=== PATIENT | female | born 1955 | race Caucasian/White ===

== ENCOUNTER 2018-09-26 13:54 | Emergency (ER) | payer BC ==
--- NOTE | 2018-09-26 14:45 | ED Physician Documentation ---
History of Present Illness - Stated complaint Stated Complaint: R LEG PX/SWELLING - Chief complaint Chief Complaint: Trauma Ext - History obtained from History obtained from: Patient - History of Present Illness Timing: Last night - Additonal information Additional information: 63 y/o female diabetic with a history of hypertension has developed a swelling and pain in the right medial calf last night. She denies any recent confinment but does have a history of sedentary existence.She has recently been started on Cardizem and she knows that the side effect of this can be leg swelling. She is concerned about this as well. Review of Systems Constitutional: denies: Fever, Chills, Myalgias Eyes: denies: Decreased vision Ears: denies: Ear pain, Drainage/discharge Nose: denies: Rhinorrhea / runny nose, Congestion Throat: denies: Oral lesions / sores Cardiac: denies: Chest pain / pressure, Palpitations Respiratory: denies: Dyspnea, Cough GI: denies: Abdominal Pain, Nausea, Vomiting : denies: Dysuria, Frequency Skin: denies: Rash Musculoskeletal: reports: Extremity pain, Extremity swelling, Pain with weight bearing. 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 HEENT: Tonsil/Adenoidectomy - Present Medications Home Medications: Ambulatory Orders Medication Instructions Recorded Confirmed Aspirin Chewable [St Xavi 81 mg PO DAILY 11/02/13 09/26/18 Aspirin] Cholecalciferol (Vitamin D3) 1,000 unit DAILY 02/20/16 09/26/18 [Vitamin D3] Acetaminophen [Tylenol] 650 mg PO Q4HR PRN #0 tablet 02/23/16 09/26/18 Biotin 1,000 mcg ORAL DAILY 09/26/18 09/26/18 Carvedilol [Coreg] 25 mg ORAL BID 09/26/18 09/26/18 Chondroitin Sulfate A Sodium 600 mg ORAL DAILY 09/26/18 09/26/18 [Chondroitin Sulfate] Cyanocobalamin (Vitamin B-12) 1 cap ORAL DAILY 09/26/18 09/26/18 [Vitamin B-12] Glucosamine Sulfate [Irma] 750 mg ORAL BID 09/26/18 09/26/18 Lisinopril 40 mg PO DAILY 09/26/18 09/26/18 - Allergies Allergies/Adverse Reactions: Allergies Allergy/AdvReac Type Severity Reaction Status Date / Time amlodipine AdvReac Edema Verified 09/26/18 14:59 ezetimibe [From Zetia] AdvReac Unknown Verified 09/26/18 14:59 prazosin AdvReac Unknown Verified 09/26/18 14:59 Fvzawse-Cja-Gjx Reductase AdvReac Unknown Verified 09/26/18 13:59 Inhibitor - Social History Does the pt smoke?: No Smoking Status: Never smoker Does the pt drink ETOH?: Yes Does the pt have substance abuse?: No PD ED PE NORMAL - Vitals Vital signs reviewed: Yes (hypertensive) - General General: Alert and oriented X 3, No acute distress, Well developed/nourished - HEENT HEENT: Atraumatic, PERRL, EOMI - Respiratory Respiratory: No respiratory distress - Derm Derm: Normal color, Warm and dry, No rash - Extremities Extremities: No deformity, Other (There is swelling and mild tenderness to the medial aspect of the right calf. There is no palpable cord. The distal n/v is intact. 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, No motor deficit, No sensory deficit, Normal speech Eye Opening: Spontaneous Motor: Obeys Commands Verbal: Oriented GCS Score: 15 - Psych Psych: Normal mood, Normal affect Results - Vitals Vitals: Vital Signs - 24 hr 09/26/18 13:58 Temperature 37.1 C Heart Rate 82 Respiratory 17 Rate Blood Pressure 194/91 H O2 Saturation 98 Oxygen O2 Source Room air - Rads (name of study) duplex Radiology: Prelim report reviewed (no evidence of DVT, calf soft tissue edema), EMP read indepedently, See rad report PD MEDICAL DECISION MAKING - ED course Complexity details: reviewed results, re-evaluated patient, considered differential, d/w patient ED course: 63-year-old female with some asymmetric swelling in her right calf does not have DVT on duplex exam. She does have some mild swelling but this does not look like the typical swelling seen with Cardizem. I explained this to the patient and she will continue on the Cardizem and follow-up with her primary care doctor on 02 October as previously planned. Her pain in her calf does go to the insertion of the gastrocnemius. Departure - Departure Disposition: 01 Home, Self Care Clinical Impression: Gastrocnemius muscle strain Qualifiers: Encounter type: initial encounter Laterality: right Qualified Code(s): S86.111A - Strain of other muscle(s) and tendon(s) of posterior muscle group at lower leg level, right leg, initial encounter Condition: Stable Instructions: ED Strain Muscle Ext Follow-Up: Tisha Busch MD [Primary Care Provider] -
--- NOTE | 2018-09-26 15:54 | Ultrasound Report ---
Reason: calf swelling/pain Procedure Date: 09/26/2018 Accession Number: [id number] / [id number] Procedure: US - Duplex Ext Veins Right CPT Code: FULL RESULT: EXAM: RIGHT LOWER EXTREMITY VENOUS ULTRASOUND EXAM DATE: 09/26/2018 03:42 PM. CLINICAL HISTORY: Calf swelling/pain. COMPARISON: None. TECHNIQUE: Real-time sonographic vascular imaging was performed by the cigarette filter inspector through the lower extremity utilizing both color-flow and Doppler spectral analysis. Multiple customer field representative static images were saved for review. FINDINGS: Common Femoral Vein (CFV): Normal. CFV-GSV Junction: Normal. Profunda Femoral Vein (PFV): Normal. Femoral Vein (FV) Prox: Normal. Femoral Vein (FV) Mid: Normal. Femoral Vein (FV) Dist: Normal. Popliteal Vein: Normal. Posterior Tibial Veins: Normal. Peroneal Veins: Normal. Contralateral Side CFV: Normal. Other: Calf soft tissue edema IMPRESSION: 1. No DVT. 2. Calf soft tissue edema RADIA
[2018-09-26 16:02] VITALS: BP 165/91
== END 2018-09-26 16:01 | disposition home or self-care (01) ==
LOC: ED 13:54
DX: S86.111A Strain of other muscle(s) and tendon(s) of posterior muscle group at lower leg level, right leg, initial encounter (principal); X50.0XXA Overexertion from strenuous movement or load, initial encounter; Y93.89 Activity, other specified; I10 Essential (primary) hypertension; E11.9 Type 2 diabetes mellitus without complications; Z79.82 Long term (current) use of aspirin
CPT/HCPCS: 99283